=== PATIENT | male | born 1980 ===

== ENCOUNTER 2017-11-05 07:40 | Emergency (ER) | payer OTHER ==
[2017-11-05 07:45] VITALS: BP 120/82; PULSE 100; RESP 20; TEMP 97; O2SAT 97
[2017-11-05] MEDS ORDERED: Sodium Chloride 0.9% 500 ML IV STA (08:00)
[2017-11-05 08:16] LABS: BASO # 0.1 K/uL (0.0-0.2); BASO % 0.6 % (0.0-2.0); EOS # 0.1 K/uL (0.0-0.7); EOS % 1.3 % (0.0-4.0); HEMATOCRIT 43.3 % (35.0-51.0); LYMPH # 1.6 K/uL (1.0-4.3); LYMPH % 16.9 % (20.0-40.0); MEAN CORPUSCULAR HGB CONC 32.9 g/dL (33.0-37.0); MEAN PLATELET VOLUME 7.9 fl (7.2-11.7); MONO # 1.2 K/uL (0.0-0.8); MONO % 12.4 % (0.0-10.0); NEUT # 6.7 K/uL (1.8-7.0); NEUT % 68.8 % (50.0-75.0); RED CELL DISTRIBUTION WIDTH 14.5 % (11.5-14.5); WHITE BLOOD COUNT 9.7 K/uL (4.8-10.8)
--- NOTE | 2017-11-05 08:20 | ED PDOC ---
HPI: Male Pain Time Seen by Provider: 11/05/17 07:50 Chief Complaint (Provider): Urinary Retention History Per: Patient History/Exam Limitations: no limitations Onset/Duration Of Symptoms: Other (months) Current Symptoms Are (Timing): Still Present Quality Of Discomfort: Burning Associated Symptoms: Fever, Urinary Symptoms (dysuria). denies: Nausea, Vomiting, Diarrhea, Back Pain, Chest Pain Additional Complaint(s): 36 year old male with a past medical history of hypothyroidism (currently taking synthroid), pre-diabetes and leukemia presents to the ED complaining of urinary retention which has been occurring for the past few months. The patient reports that he was seen at [facility] but no ailment was found. He further states that he was seen by a urologist who told him his symptoms could be due to anxiety but also gave him the option to return for further testing if his symptoms persisted. The patient reports that 2 days ago he developed fever and chills and decided to go to [facility] to be evaluated. He states that while there he was told that his urine was cloudy and was diagnosed with a urinary infection and was therefore prescribed levaquin. The patient reports that today he could not pass urine at all and when he did he felt a burning sensation. In addition to this he states that his penis also began to swell. Denies abdominal pain, back pain, chest pain, nausea, vomiting, diarrhea. Penis swelling has gone now. Of note: Patient states that he is known to have high creatinine levels. PMD: [facility] Past Medical History Reviewed: Historical Data, Nursing Documentation, Vital Signs Vital Signs: Last Vital Signs Temp 97.0 F L 11/05/17 07:44 Pulse 100 H 11/05/17 07:44 Resp 20 11/05/17 07:44 BP 120/82 11/05/17 07:44 Pulse Ox 97 11/05/17 07:44 - Medical History PMH: Diabetes (pre-diabetes), Hypothyroidism, Malignancy (leukemia hx) - Surgical History Surgical History: No Surg Hx - Family History Family History: States: Unknown Family Hx - Living Arrangements Living Arrangements: With Family - Social History Current smoker - smoking cessation education provided: No Ex-Smoker (has not smoked in the last 12 months): No Alcohol: Social Drugs: Denies - Home Medications Home Medications: Ambulatory Orders Medication Instructions Recorded Tamsulosin [Flomax] 0.4 mg PO DAILY PRN #6 cap 11/05/17 - Allergies Allergies/Adverse Reactions: Allergies Allergy/AdvReac Type Severity Reaction Status Date / Time No Known Allergies Allergy Verified 11/05/17 08:00 Review of Systems ROS Statement: Except As Marked, All Systems Reviewed And Found Negative Cardiovascular: Negative for: Chest Pain Gastrointestinal: Negative for: Nausea, Vomiting, Abdominal Pain, Diarrhea Genitourinary Male: Positive for: Dysuria, Other (urine retention; penile swelling) Musculoskeletal: Negative for: Back Pain Physical Exam - Reviewed Nursing Documentation Reviewed: Yes Vital Signs Reviewed: Yes - Physical Exam Appears: Positive for: Non-toxic, No Acute Distress Head Exam: Positive for: ATRAUMATIC, NORMAL INSPECTION, NORMOCEPHALIC Skin: Positive for: Normal Color, Warm, Dry. Negative for: Rash Eye Exam: Positive for: Normal appearance, EOMI, PERRL. Negative for: Nystagmus ENT: Positive for: Normal ENT Inspection Cardiovascular/Chest: Positive for: Regular Rate, Rhythm, Chest Non Tender. Negative for: Tachycardia Respiratory: Positive for: Normal Breath Sounds. Negative for: Wheezing, Respiratory Distress Gastrointestinal/Abdominal: Positive for: Normal Exam, Bowel Sounds, Soft. Negative for: Tenderness, Guarding, Rebound Male Genital Exam: Positive for: normal genitalia (No penile swelling). Negative for: erythema, testicular tenderness (R), testicular tenderness (L) Back: Positive for: Normal Inspection. Negative for: L CVA Tenderness, R CVA Tenderness, Muscle Spasm Extremity: Positive for: Normal ROM. Negative for: Tenderness, Deformity, Swelling Neurologic/Psych: Positive for: Alert, Oriented, Gait - Laboratory Results Result Diagrams: 11/05/17 08:00 11/05/17 08:00 Interpretation Of Abn Labs: 35/2.2 bun/cr - ECG O2 Sat by Pulse Oximetry: 97 (RA) Pulse Ox Interpretation: Normal Medical Decision Making Medical Decision Makin Initial Impression 36 y/o male presenting with urinary retention Initial Plan: * CMP * Udip * CBC * NS 500ml IV 100mls/hr * Urine Culture * Urinalysis * Reevaluation 0900 After nurse attempted martinez, martinez evacuated blood but no urine. Blood was seen coming out of the penis after martinez. No active bleeding at this time. Patient will be given morphine as he is still complaining of pain. Documented by Anamaria Francois acting as a scribe for Phillip Soliz MD. All medical record entries made by the Scribe were at my direction and personally dictated by me. I have reviewed the chart and agree that the record accurately reflects my personal performance of the history, physical exam, medical decision making, and the department course for this patient. I have also personally directed, reviewed, and agree with the discharge instructions and disposition. 930: Coude martinez attempted. Advanced with no resistance. Urine and blood evacuated but pt. with pain on inflation of martinez bubble, so martinez removed. Pt. feels better. Pending CT. Pt. bun and cr elevated, but known to pt. CT: Left perinephric stranding mild, no hydro. Urine: Trace leuk. 1116: Stable. Does not want to stay in the hospital. Going to [place] tomorrow. Urinated on his own in the ER. Pt. feels much better. Wants to go home. Will fu with urologist. Has lavaquin which he will continue to use. Will rx flomax. AAOx3. Aware of cr elevation, with normal electrolytes. Will fu with urologist and enterprise systems administrator. Disposition - Clinical Impression Clinical Impression: Urinary tract infection, Urinary retention, Renal insufficiency - Patient ED Disposition Is Patient to be Admitted: No - Disposition Referrals: Carlos A Sin MD [Staff Provider] - 11/06/17 Guille Carrasco MD [Staff Provider] - 11/06/17 Disposition: Routine/Home Disposition Time: 11:20 Condition: FAIR Additional Instructions: Return if not better in 3 days. See the urologist and enterprise systems administrator for your urinary retention and elevated creatinine levels. Come back right away if not feeling well. Prescriptions: Tamsulosin [Flomax] 0.4 mg PO DAILY PRN #6 cap PRN Reason: Pain Instructions: Urinary Retention in Men (ED), Urinary Tract Infection in Men (ED ), Impaired Kidney Function (ED) Forms: [email or web address] (Turkish) Print Language: POLISH
[2017-11-05 08:23] LABS: ALB/GLOB RATIO 1.2 (1.0-2.1); BILIRUBIN,TOTAL 0.3 mg/dl (0.2-1.3); CALCIUM 9.3 mg/dL (8.4-10.2); POTASSIUM 4.2 MMOL/L (3.6-5.0); TOTAL PROTEIN 7.4 G/DL (6.3-8.2)
[2017-11-05] MEDS ORDERED: Morphine 4 MG/ML VIAL IV ONE (09:10)
[2017-11-05] MEDS ORDERED: Morphine 4 MG/ML VIAL ONE (09:11)
--- NOTE | 2017-11-05 10:35 | CT ---
PROCEDURE: CT Abdomen and Pelvis without intravenous contrast HISTORY: R/O stone; eval prostate COMPARISON: None. TECHNIQUE: Contiguous images were obtained from the domes of the diaphragms to the upper thighs without the administration of intravenous contrast. Oral contrast was not administered. Radiation dose: Total exam DLP = 928.5 mGy-cm. This CT exam was performed using one or more of the following dose reduction techniques: Automated exposure control, adjustment of the mA and/or kV according to patient size, and/or use of iterative reconstruction technique. FINDINGS: LOWER THORAX: Unremarkable. LIVER: Hepatic steatosis. No gross lesion or ductal dilatation. GALLBLADDER AND BILE DUCTS: Unremarkable. PANCREAS: Unremarkable. No gross lesion or ductal dilatation. SPLEEN: Unremarkable. ADRENALS: Unremarkable. No mass. KIDNEYS AND URETERS: Mild nonspecific left perinephric stranding. No hydronephrosis were urolithiasis. No solid mass. VASCULATURE: Unremarkable. No aortic aneurysm. BOWEL: Unremarkable. No obstruction. No gross mural thickening. APPENDIX: Unremarkable. Normal appendix. PERITONEUM: Unremarkable. No free fluid. No free air. LYMPH NODES: Unremarkable. No enlarged lymph nodes. BLADDER: Unremarkable. REPRODUCTIVE: Unremarkable. BONES: Bilateral hip arthroplasties. OTHER FINDINGS: None. IMPRESSION: No hydronephrosis or urolithiasis. Nonspecific left perinephric stranding can be seen in the setting of infection or recently passed genitourinary calculus. Clinical correlation is recommended.
[2017-11-05 11:06] LABS: URINE COLOR RED (YELLOW)
[2017-11-05 11:07] LABS: URINE BILIRUBIN NEGATIVE (NEGATIVE); URINE BLOOD LARGE (NEGATIVE); URINE GLUCOSE (UA) NEGATIVE (Normal); URINE KETONE NEGATIVE (NEGATIVE); URINE PROTEIN > 300 mg/dL (NEGATIVE); URINE UROBILINOGEN 0.2 mg/dL (0.2-1.0)
[2017-11-05 11:08] LABS: RBC URINE > 500 /hpf (0-3); URINE BACTERIA TRACE (<OCC); URINE LEUKOCYTE ESTERASE TRACE Leu/uL (Negative); WBC URINE < 2 /hpf (0-5)
== END 2017-11-05 12:19 | disposition home or self-care (01) ==
LOC: H.ER 07:40
DX: N39.0 Urinary tract infection, site not specified (principal); E03.9 Hypothyroidism, unspecified; N28.9 Disorder of kidney and ureter, unspecified; R73.03 Prediabetes; Z87.891 Personal history of nicotine dependence; C91.00 Acute lymphoblastic leukemia not having achieved remission
CPT/HCPCS: 74176; 80053; 81003; 85025; 87086; 96374; 99285; J1885; J2270; J7040